=== PATIENT | male | born 1985 | race American Indian/Alaskan Native ===

== ENCOUNTER 2018-02-11 03:53 | Emergency (ER) | payer MEDICAID, OTHER ==
[2018-02-11 04:09] VITALS: BP 153/103
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
[2018-02-11] MEDS ORDERED: Sodium Chloride 0.9% 1,000 ML IV SCH (04:30)
[2018-02-11] MEDS ORDERED: Calcium Gluconate 10% 1 GM/10 ML SDV IV ONE (05:19)
[2018-02-11] MEDS ORDERED: Potassium Chloride 10% 20 MEQ/15 ML Soln 30 ML UD Cup PO ONE (05:21)
[2018-02-11] MEDS ORDERED: diphenhydrAMINE 50 MG/ML SDV IVPUSH ONE ×2 (05:21→06:25)
[2018-02-11] MEDS ORDERED: Potassium Chloride 10% 20 MEQ/15 ML Soln 15 ML UD Cup PO ONE (05:36)
== END 2018-02-11 06:45 | disposition home or self-care (01) ==
LOC: JD.ED 03:53
DX: E87.6 Hypokalemia (principal); E83.51 Hypocalcemia
CPT/HCPCS: 36415; 80053; 80306; 83735; 85025; 93005; 96361; 96365; 96375; 96376; 99284; A9270; J0610; J1200; J7040